=== PATIENT | male | born 1945 | race Caucasian/White ===

== ENCOUNTER 2016-12-18 09:21 | Day surgery (SDC) | payer MEDICARE, BC ==
[2016-12-18] MEDS ORDERED: LACTATED RINGERS 1,000 ML IV ONE (09:47)
[2016-12-18] MEDS ORDERED: MIDAZOLAM 2 MG/2 ML VIAL IVP ONE (11:48)
[2016-12-18] MEDS ORDERED: ATROPINE 0.4 MG/ML VIAL IVP ONE (11:48)
[2016-12-18] MEDS ORDERED: fentaNYL 100 MCG/2 ML VIAL IVP ONE (11:48)
== END 2016-12-18 09:22 | disposition home or self-care (01) ==
PROC: 0DJD8ZZ Inspection of Lower Intestinal Tract, Via Natural or Artificial Opening Endoscopic (ICD-10-PCS; principal; 2016-12-18 10:30)
DX: K62.5 Hemorrhage of anus and rectum (principal); K57.30 Diverticulosis of large intestine without perforation or abscess without bleeding; Q43.8 Other specified congenital malformations of intestine; Z86.010 Personal history of colon polyps; K64.8 Other hemorrhoids; E55.9 Vitamin D deficiency, unspecified; Z87.891 Personal history of nicotine dependence
CPT/HCPCS: 45378; J7120

== ENCOUNTER 2018-03-19 10:32 | Outpatient (CLI) | payer MEDICARE, BC ==
--- NOTE | 2018-03-20 03:21 | XRAY Report ---
EXAM: CHEST RADIOGRAPHY EXAM DATE: 03/19/2018 10:43 AM. CLINICAL HISTORY: LUNG CANCER, PERSISTENT MALAISE. COMPARISON: None. TECHNIQUE: 2 views. FINDINGS: Lungs/Pleura: The lungs are hyperinflated. No focal consolidation, effusion, or pneumothorax. Mediastinum: Heart and mediastinal contours are unremarkable. Other: None. IMPRESSION: Hyperinflation, but no evidence of acute cardiopulmonary disease. [facility] Referring Provider Line: [phone] SITE ID: [id number]
== END 2018-03-19 10:33 | disposition home or self-care (01) ==
LOC: DI.S 10:32
PROVIDERS: ATTEND Family Medicine
DX: C34.90 Malignant neoplasm of unspecified part of unspecified bronchus or lung (principal); R53.81 Other malaise; J18.1 Lobar pneumonia, unspecified organism
CPT/HCPCS: 71046

== ENCOUNTER 2018-11-28 13:46 | Emergency (ER) | payer MEDICARE, BC ==
[2018-11-28 13:57] VITALS: BP 165/74
--- NOTE | 2018-11-28 14:48 | ED Physician Documentation ---
PD HPI LOWER EXT INJURY - Stated complaint Stated Complaint: ANKLE PX - Chief complaint Chief Complaint: Ext Problem - History obtained from History obtained from: Patient - History of Present Illness PD HPI LOW EXT INJURY LOCATION: Left, Ankle Type of injury: Twist (He was up on a ladder, the ladder started to fall and as he was going down his foot got caught in the ladder and twisted. Pain is minor at this juncture and he can walk and bear weight.) Review of Systems Constitutional: reports: Reviewed and negative Throat: reports: Reviewed and negative Cardiac: reports: Reviewed and negative PD PAST MEDICAL HISTORY - Past Medical History Past Medical History: Yes : Benign prostate hypertrophy - Past Surgical History Past Surgical History: Yes General: Colonoscopy, EGD Ortho: Carpal Tunnel surgery - Present Medications Home Medications: Ambulatory Orders Medication Instructions Recorded Confirmed Cholecalciferol (Vitamin D3) 1,000 unit PO DAILY 12/18/16 12/18/16 [Vitamin D3] RX: Terazosin HCl 10 mg PO DAILY 12/18/16 12/18/16 Hydrocodone/Acetaminophen 1 - 2 each PO Q6H PRN #14 tablet 11/28/18 [Hydrocodon-Acetaminophen 5-325] - Allergies Allergies/Adverse Reactions: Allergies Allergy/AdvReac Type Severity Reaction Status Date / Time Anesthetics - Amide Type Allergy Unknown Verified 12/15/16 13:58 fentanyl AdvReac Nausea Verified 12/15/16 13:58 - Social History Does the pt smoke?: Yes Smoking Status: Former smoker Does the pt drink ETOH?: Yes Does the pt have substance abuse?: No - Immunizations Immunizations are current?: Yes PD ED PE NORMAL - Vitals Vital signs reviewed: Yes - General General: Alert and oriented X 3, No acute distress - Extremities Extremities: Other (Tenderness and swelling over the lateral malleolus without medial malleolar or proximal fibular tenderness. No foot tenderness.) - Neuro Neuro: Alert and oriented X 3, Normal speech Results - Vitals Vitals: Vital Signs - 24 hr 11/28/18 13:53 Temperature 36.4 C L Heart Rate 63 Respiratory 18 Rate Blood Pressure 165/74 H O2 Saturation 97 Oxygen O2 Source Room air - Rads (name of study) L ankle 3v Radiology: EMP read contemporaneously (nondisplaced distal tip frx fibula) Departure - Departure Disposition: 01 Home, Self Care Clinical Impression: Fracture of distal fibula Qualifiers: Encounter type: initial encounter Fracture type: closed Fracture morphology: other fracture Laterality: left Qualified Code(s): S82.832A - Other fracture of upper and lower end of left fibula, initial encounter for closed fracture Condition: Good Record reviewed to determine appropriate education?: Yes Instructions: ED Fx Lower Ext, ED Boot Aircast Walker Follow-Up: [facility] [Provider Group] - Within 1 week Prescriptions: Hydrocodone/Acetaminophen [Hydrocodon-Acetaminophen 5-325] 1 - 2 each PO Q6H PRN #14 tablet PRN Reason: pain Comments: Follow-up with the orthopedic clinic in 1 week. I think it is okay to walk and bear weight on it in the boot. Return for new or worsening symptoms. Elevated as much as possible. Your blood pressure was elevated today on check into the emergency department. This does not mean that you have hypertension, it is a common phenomenon to come to the emergency department and have elevated blood pressure. I recommend that you see your primary care physician within the week to have it rechecked when you are feeling better. Do not drink or drive while taking narcotic pain medication. Note that many narcotic pain relievers also contain Tylenol/acetaminophen. Please ensure that your total dose of acetaminophen from all sources does not exceed 3 g (3000 mg) per day. You may get constipated while on this medication. Take a stool softener such as Colace twice a day while you are on it. Also add an armr-cog-imvdhtg laxative such as senna or MiraLAX on any day that you do not have a bowel movement. If you received a narcotic pain medication or sedative while in the emergency department, do not drive for the next 24 hours. Discharge Date/Time: 11/28/18 14:55
--- NOTE | 2018-11-28 14:51 | XRAY Report ---
Reason: GLF, ankle swelling Procedure Date: 11/28/2018 Accession Number: [id number] / [id number] Procedure: XR - Ankle 3 View LT CPT Code: FULL RESULT: EXAM: LEFT ANKLE RADIOGRAPHY EXAM DATE: 11/28/2018 02:41 PM. CLINICAL HISTORY: GLF, ankle swelling. COMPARISON: None. TECHNIQUE: 3 views. FINDINGS: Bones: Comminuted transverse fracture of the lateral malleolar tip, minimal from the underlying bone. Smooth ossicle related to medial malleolar tip, but no other definite acute fracture. Joints: Symmetrical mortise. Moderate joint effusion. Soft Tissues: Soft tissue swelling over lateral malleolus. IMPRESSION: Minimally to nondisplaced lateral malleolar fracture. [facility]
== END 2018-11-28 14:55 | disposition home or self-care (01) ==
LOC: ED 13:46
DX: S82.832A Other fracture of upper and lower end of left fibula, initial encounter for closed fracture (principal); W23.0XXA Caught, crushed, jammed, or pinched between moving objects, initial encounter; X50.1XXA Overexertion from prolonged static or awkward postures, initial encounter; R03.0 Elevated blood-pressure reading, without diagnosis of hypertension; Z87.891 Personal history of nicotine dependence
CPT/HCPCS: 99283

== ENCOUNTER 2019-09-03 12:33 | Emergency (ER) | payer MEDICARE, BC ==
--- NOTE | 2019-09-03 13:24 | ED Physician Documentation ---
History of Present Illness - Stated complaint Stated Complaint: rectal bleeding - Chief complaint Chief Complaint: Abd Pain - Additonal information Additional information: 74 year old male presents with constipation, small loose amounts of stool, and a small amount of blood in his stool after straining in the last day. He denies anterior abdominal pain, no vomiting. He does not take any medications for constipation. Review of Systems Constitutional: denies: Fever GI: reports: Constipation. denies: Abdominal Pain, Vomiting : denies: Dysuria PD PAST MEDICAL HISTORY - Past Medical History : Benign prostate hypertrophy - Past Surgical History Past Surgical History: Yes General: Colonoscopy, EGD Ortho: Carpal Tunnel surgery - Present Medications Home Medications: Ambulatory Orders Medication Instructions Recorded Confirmed Cholecalciferol (Vitamin D3) 1,000 unit PO DAILY 12/18/16 12/18/16 [Vitamin D3] Terazosin HCl 10 mg PO DAILY 12/18/16 12/18/16 Hydrocodone/Acetaminophen 1 - 2 each PO Q6H PRN #14 tablet 11/28/18 [Hydrocodon-Acetaminophen 5-325] Polyethylene Glycol 3350 17 gm PO BID PRN #20 powd.pack 09/03/19 [Powderlax] - Allergies Allergies/Adverse Reactions: Allergies Allergy/AdvReac Type Severity Reaction Status Date / Time Anesthetics - Amide Type Allergy Unknown Verified 09/03/19 12:53 fentanyl AdvReac Nausea Verified 09/03/19 12:53 - Social History Does the pt smoke?: Yes Smoking Status: Former smoker Does the pt drink ETOH?: Yes Does the pt have substance abuse?: No - Immunizations Immunizations are current?: Yes PD ED PE NORMAL - Vitals Vital signs reviewed: Yes - General General: Alert and oriented X 3, No acute distress - HEENT HEENT: PERRL - Neck Neck: Supple, no meningeal sign - Cardiac Cardiac: RRR - Respiratory Respiratory: No respiratory distress, Clear bilaterally - Abdomen Abdomen: Normal bowel sounds, Soft, Non tender, Non distended - Rectal Rectal: Other (Rn tessa Chacko present. There is a palpable stool ball but I am unable to disimpact it. Small external hemorrhoid, no bleeding present. Stool is light brown.) - Derm Derm: Warm and dry - Extremities Extremities: No deformity - Neuro Neuro: Alert and oriented X 3 - Psych Psych: Normal mood, Normal affect Results - Vitals Vitals: Oxygen O2 Source Room air - Labs Labs: Laboratory Tests 09/03/19 09/03/19 09/03/19 13:21 13:21 13:21 WBC 13.3 H RBC 5.14 Hgb 13.8 L Hct 42.1 MCV 81.9 MCH 26.8 L MCHC 32.8 RDW 13.7 Plt Count 259 MPV 8.5 Neut # (Auto) 10.9 H Lymph # (Auto) 1.4 L [place] # (Auto) 0.7 Eos # (Auto) 0.2 Baso # (Auto) 0.1 Absolute Nucleated RBC 0.00 Nucleated RBC % 0.0 PT 11.5 INR 1.0 Sodium 134 L Potassium 3.9 Chloride 96 L Carbon Dioxide 28 Anion Gap 10.0 BUN 17 Creatinine 0.8 Estimated GFR (MDRD) 94 Glucose 109 H Calcium 9.2 Total Bilirubin 0.9 AST 29 ALT 22 Alkaline Phosphatase 66 Total Protein 7.8 Albumin 4.5 Globulin 3.3 Albumin/Globulin Ratio 1.4 Lipase 28 - Rads (name of study) XR abd Radiology: Other (Large stool burden in rectum) PD MEDICAL DECISION MAKING - ED course Complexity details: considered differential (Constipation, impaction, GI bleed, rectal mass, hemorrhoid) ED course: Pt has a palpable stool ball on exam. He was unable to urinate as well, which is new for him. He has a mild leukocytosis, otherwise unrevealing labs. He was given a fleets enema in the ED and afterwards had a large, non-bloody bowel movement. He feels much better and his discomfort is gone. He is also able to urinate without issue. I discussed return precautions including black or continued bloody stools, miralax use for constipation, and patient was dicharged home in good condition. Departure - Departure Disposition: 01 Home, Self Care Clinical Impression: Rectal bleeding Constipation Qualifiers: Constipation type: unspecified constipation type Qualified Code(s): K59.00 - Constipation, unspecified Condition: Good Instructions: ED Constipation, ED Hematochezia Stable Follow-Up: Emre Hernandez MD [Primary Care Provider] - Within 3 Days Prescriptions: Polyethylene Glycol 3350 [Powderlax] 17 gm PO BID PRN #20 powd.pack PRN Reason: Constipation Comments: You appear to have constipation which is likely causing some rectal bleeding. I recommend taking the MiraLAX twice a day until you are having normal soft bowel movements. If you are having continued rectal bleeding, or other symptoms such as weakness, abdominal pain, passing out, or very dark/ black stool, you need to be reevaluated in the emergency department. If your symptoms are improving, I still would like you to follow-up with your primary care provider in the next week. Discharge Date/Time: 09/03/19 18:30
[2019-09-03 13:30] LABS: BASOPHILS # (AUTO) 0.1 10^3/uL (0.0-0.1); BASOPHILS % (AUTO) 0.5 %; EOSINOPHILS # (AUTO) 0.2 10^3/uL (0.0-0.7); EOSINOPHILS % (AUTO) 1.4 %; HGB - HEMOGLOBIN 13.8 g/dL (14.0-18.0); LYMPHOCYTES # (AUTO) 1.4 10^3/uL (1.5-3.5); LYMPHOCYTES % (AUTO) 10.5 %; MEAN CORPUSCULAR HEMOGLOBIN 26.8 pg (27.0-31.0); MEAN CORPUSCULAR HGB CONC 32.8 g/dL (32.0-36.0); MEAN CORPUSCULAR VOLUME 81.9 fL (80.0-94.0); MEAN PLATELET VOLUME 8.5 fL (7.4-11.4); MONOCYTES # (AUTO) 0.7 10^3/uL (0.0-1.0); MONOCYTES % (AUTO) 5.1 %; NEUTROPHILS # (AUTO) 10.9 10^3/uL (1.5-6.6); NEUTROPHILS % (AUTO) 81.9 %; PLT - PLATELET COUNT 259 10^3/uL (130-450); RED BLOOD COUNT 5.14 10^6/uL (4.70-6.10); RED CELL DISTRIBUTION WIDTH 13.7 % (12.0-15.0); WHITE BLOOD COUNT 13.3 x10^3/uL (4.8-10.8)
[2019-09-03 13:38] LABS: PT - PROTHROMBIN TIME 11.5 secs (9.9-12.6)
[2019-09-03 13:55] LABS: CREATININE 0.8 mg/dL (0.6-1.2)
[2019-09-03 13:56] LABS: ALBUMIN 4.5 g/dL (3.2-5.5); ALBUMIN/GLOBULIN RATIO 1.4 (1.0-2.2); BILIRUBIN,TOTAL 0.9 mg/dL (0.2-1.0); CALCIUM 9.2 mg/dL (8.5-10.3); TOTAL PROTEIN 7.8 g/dL (6.7-8.2)
--- NOTE | 2019-09-03 14:48 | XRAY Report ---
Reason: Assess stool burden Procedure Date: 09/03/2019 Accession Number: [id number] / [id number] Procedure: XR - Abdomen 1 View X-Ray CPT Code: 11618 Final Report FULL RESULT: EXAM: ABDOMEN RADIOGRAPHY EXAM DATE: 09/03/2019 02:23 PM. CLINICAL HISTORY: Constipation and blood in stool x2 days. Assess stool burden. COMPARISON: None. TECHNIQUE: 1 view, supine. FINDINGS: Lung Bases: Clear as visualized. Bowel Gas Pattern: Prominent stool in the distal colon and rectum. Average to low stool burden elsewhere in the colon. No dilated small bowel loops. Bones: Unremarkable. Other: Intrapelvic phleboliths. IMPRESSION: Prominent stool in the distal colon and rectum, compatible with given history of constipation. [facility]
[2019-09-03 18:27] VITALS: BP 152/73
== END 2019-09-03 18:30 | disposition home or self-care (01) ==
LOC: ED 12:33
DX: K59.00 Constipation, unspecified (principal); K62.5 Hemorrhage of anus and rectum; K64.4 Residual hemorrhoidal skin tags; R33.9 Retention of urine, unspecified; Z87.891 Personal history of nicotine dependence
CPT/HCPCS: 36415; 51798; 74018; 80053; 83690; 85025; 85610; 99283

== ENCOUNTER 2020-08-12 08:00 | Outpatient (CLI) | payer MEDICARE, BC ==
[2020-08-12 18:31] LABS: BASOPHILS # (AUTO) 0.1 10^3/uL (0.0-0.1); BASOPHILS % (AUTO) 0.9 %; EOSINOPHILS # (AUTO) 0.4 10^3/uL (0.0-0.7); EOSINOPHILS % (AUTO) 4.9 %; HGB - HEMOGLOBIN 12.8 g/dL (14.0-18.0); LYMPHOCYTES # (AUTO) 2.1 10^3/uL (1.5-3.5); LYMPHOCYTES % (AUTO) 27.9 %; MEAN CORPUSCULAR HEMOGLOBIN 25.8 pg (27.0-31.0); MEAN CORPUSCULAR HGB CONC 31.4 g/dL (32.0-36.0); MEAN CORPUSCULAR VOLUME 82.1 fL (80.0-94.0); MEAN PLATELET VOLUME 9.4 fL (7.4-11.4); MONOCYTES # (AUTO) 0.6 10^3/uL (0.0-1.0); MONOCYTES % (AUTO) 7.5 %; NEUTROPHILS # (AUTO) 4.4 10^3/uL (1.5-6.6); NEUTROPHILS % (AUTO) 58.5 %; PLT - PLATELET COUNT 271 10^3/uL (130-450); RED BLOOD COUNT 4.96 10^6/uL (4.70-6.10); RED CELL DISTRIBUTION WIDTH 13.7 % (12.0-15.0); WHITE BLOOD COUNT 7.6 x10^3/uL (4.8-10.8)
[2020-08-12 18:56] LABS: ALBUMIN 4.2 g/dL (3.2-5.5); ALBUMIN/GLOBULIN RATIO 1.3 (1.0-2.2); BILIRUBIN,TOTAL 0.7 mg/dL (0.2-1.0); CALCIUM 9.8 mg/dL (8.5-10.3); CREATININE 0.7 mg/dL (0.6-1.2); TOTAL PROTEIN 7.5 g/dL (6.7-8.2)
[2020-08-12 19:09] LABS: THYROID STIMULATING HORMONE 1.1 uIU/mL (0.34-5.60)
[2020-08-12 19:11] LABS: FREE T3 2.81 pg/mL (2.5-3.9); FREE T4 (FREE THYROXINE) 1.03 ng/dL (0.58-1.64)
== END 2020-08-12 23:59 | disposition home or self-care (01) ==
LOC: LAB.WCP 08:00
PROVIDERS: ATTEND Family Medicine
DX: R20.8 Other disturbances of skin sensation (principal); M48.02 Spinal stenosis, cervical region; M62.81 Muscle weakness (generalized)
CPT/HCPCS: 36415; 80053; 82607; 84207; 84439; 84443; 84481; 85025

== ENCOUNTER 2022-10-12 10:08 | Outpatient (CLI) | payer MEDICARE, BC ==
[2022-10-12 14:55] LABS: BASOPHILS # (AUTO) 0.1 10^3/uL (0.0-0.1); BASOPHILS % (AUTO) 1.1 %; EOSINOPHILS # (AUTO) 0.4 10^3/uL (0.0-0.7); EOSINOPHILS % (AUTO) 6.3 %; HCT - HEMATOCRIT 44.7 % (42.0-52.0); HGB - HEMOGLOBIN 13.9 g/dL (14.0-18.0); LYMPHOCYTES # (AUTO) 2.3 10^3/uL (1.5-3.5); LYMPHOCYTES % (AUTO) 34.9 %; MEAN CORPUSCULAR HEMOGLOBIN 25.6 pg (27.0-31.0); MEAN CORPUSCULAR HGB CONC 31.1 g/dL (32.0-36.0); MEAN CORPUSCULAR VOLUME 82.3 fL (80.0-94.0); MONOCYTES # (AUTO) 0.6 10^3/uL (0.0-1.0); MONOCYTES % (AUTO) 8.8 %; NEUTROPHILS # (AUTO) 3.2 10^3/uL (1.5-6.6); NEUTROPHILS % (AUTO) 48.6 %; PLT - PLATELET COUNT 297 10^3/uL (130-450); RED BLOOD COUNT 5.43 10^6/uL (4.70-6.10); RED CELL DISTRIBUTION WIDTH 13.8 % (12.0-15.0); WHITE BLOOD COUNT 6.5 x10^3/uL (4.8-10.8)
[2022-10-12 15:48] LABS: THYROID STIMULATING HORMONE 2.37 uIU/mL (0.34-5.60)
[2022-10-12 15:49] LABS: FREE T3 2.94 pg/mL (2.5-3.9)
[2022-10-12 15:50] LABS: FREE T4 (FREE THYROXINE) 0.86 ng/dL (0.58-1.64)
[2022-10-12 16:00] LABS: ALBUMIN 4.3 g/dL (3.2-5.5); ALBUMIN/GLOBULIN RATIO 1.3 (1.0-2.2); ALKALINE PHOSPHATASE 75 IU/L (42-121); ALT ALANINE AMINOTRANSFERASE 22 IU/L (10-60); AST ASPARTATE AMINOTRANSFERASE 27 IU/L (10-42); BILIRUBIN,TOTAL 1.1 mg/dL (0.2-1.0); BUN - BLOOD UREA NITROGEN 17 mg/dL (6-20); CALCIUM 9.4 mg/dL (8.5-10.3); CARBON DIOXIDE - CO2 33 mmol/L (21-32); CHLORIDE 97 mmol/L (101-111); CHOL/HDL RATIO 2.7 (<5.0); CHOLESTEROL 231 mg/dL; CREATININE 0.8 mg/dL (0.6-1.2); GFR - MDRD 94 (>89); GLUCOSE 99 mg/dL (70-100); HDL CHOLESTEROL 85 mg/dL; LDL CHOLESTEROL,CALCULATED 133 mg/dL; LDL/HDL RATIO 1.6 (<3.6); POTASSIUM 3.9 mmol/L (3.5-5.0); SODIUM 135 mmol/L (135-145); TOTAL PROTEIN 7.7 g/dL (6.7-8.2); TRIGLYCERIDES 67 mg/dL; VLDL CHOLESTEROL 13 mg/dL
== END 2022-10-12 10:09 | disposition home or self-care (01) ==
LOC: LAB.S 10:08
PROVIDERS: ATTEND Family Medicine
DX: N40.0 Benign prostatic hyperplasia without lower urinary tract symptoms (principal); R00.2 Palpitations; R53.83 Other fatigue; M48.02 Spinal stenosis, cervical region; G98.8 Other disorders of nervous system
CPT/HCPCS: 36415; 80053; 80061; 83721; 84153; 84439; 84443; 84481; 85025

== ENCOUNTER 2022-11-16 13:14 | Outpatient (CLI) | payer MEDICARE, BC | END 2022-11-16 13:15 | disposition home or self-care (01) | LOC: MAC.INF 13:14 | PROVIDERS: ATTEND Family Medicine | DX: R00.2 Palpitations (principal); R53.83 Other fatigue | CPT/HCPCS: 93246 ==

== ENCOUNTER 2022-12-13 10:30 | Outpatient (CLI) | payer MEDICARE, BC | END 2022-12-13 10:31 | disposition home or self-care (01) | LOC: MAC.INF 10:30 | PROVIDERS: ATTEND Family Medicine | DX: I47.1 Supraventricular tachycardia (principal); I44.0 Atrioventricular block, first degree; I49.1 Atrial premature depolarization; I49.3 Ventricular premature depolarization | CPT/HCPCS: 93248 ==

== ENCOUNTER 2023-12-25 08:33 | Outpatient (CLI) | payer MEDICARE, BC ==
[2023-12-25 15:21] LABS: BASOPHILS # (AUTO) 0.1 10^3/uL (0.0-0.1); BASOPHILS % (AUTO) 1.1 %; EOSINOPHILS # (AUTO) 0.5 10^3/uL (0.0-0.7); EOSINOPHILS % (AUTO) 7.2 %; HCT - HEMATOCRIT 40.1 % (42.0-52.0); HGB - HEMOGLOBIN 12.8 g/dL (14.0-18.0); LYMPHOCYTES # (AUTO) 2.2 10^3/uL (1.5-3.5); MEAN CORPUSCULAR HEMOGLOBIN 26.4 pg (27.0-31.0); MEAN CORPUSCULAR HGB CONC 31.9 g/dL (32.0-36.0); MEAN CORPUSCULAR VOLUME 82.7 fL (80.0-94.0); MEAN PLATELET VOLUME 9.2 fL (7.4-11.4); MONOCYTES # (AUTO) 0.6 10^3/uL (0.0-1.0); MONOCYTES % (AUTO) 8.8 %; NEUTROPHILS # (AUTO) 3.1 10^3/uL (1.5-6.6); NEUTROPHILS % (AUTO) 48.7 %; PLT - PLATELET COUNT 252 10^3/uL (130-450); RED BLOOD COUNT 4.85 10^6/uL (4.70-6.10); RED CELL DISTRIBUTION WIDTH 14.5 % (12.0-15.0); WHITE BLOOD COUNT 6.4 x10^3/uL (4.8-10.8)
[2023-12-25 16:24] LABS: CHOL/HDL RATIO 2.9 (<5.0); CHOLESTEROL 210 mg/dL; HDL CHOLESTEROL 72 mg/dL; LDL CHOLESTEROL,CALCULATED 122 mg/dL; LDL/HDL RATIO 1.7 (<3.6); TRIGLYCERIDES 80 mg/dL (48-352); VLDL CHOLESTEROL 16 mg/dL
[2023-12-25 16:36] LABS: THYROID STIMULATING HORMONE 2.64 uIU/mL (0.34-5.60)
[2023-12-25 17:08] LABS: ALBUMIN 4.1 g/dL (3.2-5.5); ALBUMIN/GLOBULIN RATIO 1.4 (1.0-2.2); ALKALINE PHOSPHATASE 70 IU/L (42-121); ALT ALANINE AMINOTRANSFERASE 18 IU/L (10-60); AST ASPARTATE AMINOTRANSFERASE 23 IU/L (10-42); BILIRUBIN,TOTAL 0.7 mg/dL (0.2-1.0); BUN - BLOOD UREA NITROGEN 17 mg/dL (6-20); CALCIUM 9.8 mg/dL (8.5-10.3); CARBON DIOXIDE - CO2 33 mmol/L (21-32); CHLORIDE 102 mmol/L (101-111); CREATININE 0.8 mg/dL (0.6-1.3); GFR - MDRD 93 (>89); GLUCOSE 94 mg/dL (74-104); SODIUM 138 mmol/L (135-145); TOTAL PROTEIN 7.1 g/dL (6.4-8.9)
== END 2023-12-25 08:34 | disposition home or self-care (01) ==
LOC: LAB.S 08:33
PROVIDERS: ATTEND Family Medicine
DX: R29.818 Other symptoms and signs involving the nervous system (principal); Z12.5 Encounter for screening for malignant neoplasm of prostate
CPT/HCPCS: 36415; 80053; 80061; 84443; 85025; G0103; 83721; 84153